=== PATIENT | female | born 1985 | race Caucasian/White ===

== ENCOUNTER 2016-09-20 08:24 | Emergency (ER) | payer OTHER | END 2016-09-20 09:50 | disposition home or self-care (01) | LOC: D.ER 08:24 | DX: J18.9 Pneumonia, unspecified organism (principal) ==

== ENCOUNTER 2018-05-20 10:35 | Emergency (ER) | payer OTHER ==
[~2018-05-20] VITALS: Ht 166.4 cm; Wt 50.0 kg
[2018-05-20 10:46] VITALS: Ht 166.4 cm; Wt 50.0 kg
[2018-05-20] MEDS ORDERED: ZOLOFT100 MG PO (10:49)
[2018-05-20] MEDS ORDERED: KLONOPIN0.5 MG PO (10:49)
[2018-05-20] MEDS ORDERED: PROPRANOLOL HCL20 MG PO (10:49)
[2018-05-20 11:39] LABS: APPEARANCE CLEAR (CLEAR); BILIRUBIN NEGATIVE (NEGATIVE); COLOR STRAW (YELLOW); GLUCOSE NEGATIVE (NEGATIVE); KETONE NEGATIVE (NEGATIVE); NITRITE NEGATIVE (NEGATIVE); PROTEIN NEGATIVE (NEGATIVE); UROBILINOGEN NORMAL (NORMAL)
[2018-05-20 11:42] LABS: BASOPHILS 0.9 % (0-2); EOSINOPHILS 21.7 % (0-7); HEMATOCRIT 42.7 % (36.0-48.0); HEMOGLOBIN 14.5 g/dL (12-16); IMMATURE GRANULOCYTES 0.1 % (0-5); LYMPHOCYTES 31.9 % (15-50); MCH 31.6 pg (26.0-34.0); MEAN PLATELET VOLUME 9.3 fL (7.4-10.4); MONOCYTES 4.4 % (2-11); PLATELET COUNT 260 10x3/uL (130-400); RBC 4.59 10x6/uL (4.00-5.40); RDW 13.2 % (11.5-14.5); WBC 10.5 10x3/uL (4.8-10.8)
[2018-05-20 11:42] LABS: HCG URINE NEGATIVE (NEGATIVE)
[2018-05-20 11:47] LABS: ALBUMIN 4.1 g/dL (3.4-5.0); ALKALINE PHOSPHATASE 71 U/L (46-116); ALT (SGPT) 11 U/L (10-68); BILIRUBIN - TOTAL 0.63 mg/dL (0.2-1.3); CALC OSMOLALITY 276 mosm/kg (275-300); CALCIUM 8.6 mg/dL (8.5-10.1); CARBON DIOXIDE 27.8 mmol/L (21.0-32.0); CHLORIDE - SERUM 104 mmol/L (98-107); CREATININE - SERUM 0.8 mg/dL (0.6-1.3); GLUCOSE 78 mg/dL (74-106); POTASSIUM - SERUM 3.8 mmol/L (3.5-5.1); PROTEIN - SERUM 7.7 g/dL (6.4-8.2); SODIUM 140 mmol/L (136-145); UREA NITROGEN 9 mg/dL (7-18); eGFR NON AFRICAN AMERICAN 87 mL/min (90-120)
[2018-05-20] MEDS ORDERED: ULTRAM50 MG PO (12:07)
[2018-05-20 12:33] VITALS: BP 97/67
== END 2018-05-20 12:34 | disposition home or self-care (01) ==
LOC: D.ER 10:35
PROVIDERS: Emergency Medicine
DX: R10.2 Pelvic and perineal pain (principal); F17.200 Nicotine dependence, unspecified, uncomplicated